=== PATIENT | male | born 2000 ===

== ENCOUNTER 2024-07-30 14:58 | Emergency (ER) | payer SELFPAY | END 2024-07-30 15:45 | disposition home or self-care (01) | LOC: DL.ED 14:58 | DX: S61.411A Laceration without foreign body of right hand, initial encounter (principal); F17.210 Nicotine dependence, cigarettes, uncomplicated; W25.XXXA Contact with sharp glass, initial encounter | CPT/HCPCS: 12001; 99282; 99283 ==